=== PATIENT | female | born 1955 | race Caucasian/White ===

== ENCOUNTER 2020-06-03 19:49 | Inpatient (IN) | payer SELFPAY ==
[~2020-06-03] VITALS: Ht 160 cm; Wt 86.6 kg
[2020-06-03] MEDS ORDERED: cloNIDine HCL 0.1 MG TAB PO ONE (20:15)
[2020-06-03] MEDS ORDERED: LORazepam 2MG/ML-1ML VIAL IV ONE (21:00)
[2020-06-03] MEDS ORDERED: LORazepam 2MG/ML-1ML VIAL ONE (21:02)
[2020-06-03 21:11] LABS: Eosinophils # (auto) 0 10 ^3/uL (0-0.8); Monocytes # (auto) 0.4 10 ^3/uL (0-1.3); Nucleated Red Blood Cells % 0.1 %; White Blood Cell 8.8 10^3/uL (4.4-10.8)
[2020-06-03 21:14] LABS: Basophils # (auto) 0 10 ^3/uL (0-0.2); Basophils % (auto) 0.3 % (0.0-2.0); Eosinophils % (auto) 0.1 % (0.0-7.0); Hematocrit 42.7 % (36.0-46.0); Hemoglobin 14.8 g/dL (12.2-16.2); Lymphocytes % (auto) 10.9 % (10.0-50.0); Mean Corpuscular Hemoglobin 36.1 pg (28.0-32.0); Mean Corpuscular Hgb Conc. 34.7 g/dL (32.0-36.0); Mean Corpuscular Volume 103.9 fL (80.0-100.0); Monocytes % (auto) 4.7 % (0.0-12.0); Neutrophils # (auto) 7.4 10 ^3/uL (1.6-8.6); Platelet Count (auto) 226 10^3/uL (140-450); Red Blood Cells 4.11 10^6/uL (4.0-5.20); Red Cell Distribution Width 13.8 % (11.8-14.3)
[2020-06-03 21:26] LABS: Albumin 4.1 g/dL (3.4-5.0); Anion Gap 13 (5-15); Blood Urea Nitrogen 10 mg/dL (7-18); Calcium 9.3 mg/dL (8.5-10.1); Carbon Dioxide 21 mmol/L (21-32); Chloride 103 mmol/L (98-107); Glucose 115 mg/dL (74-106); Sodium 137 mmol/L (136-145)
[2020-06-03 21:27] LABS: INR 0.98 (0.9-1.15); Partial Thromboplastin Time 24.4 sec (23.0-31.2)
[2020-06-03 21:29] LABS: Alanine Aminotransferase 26 U/L (13-56); Aspartate Aminotransferase 28 U/L (15-37); BUN/Creatinine Ratio 8.9; GFR African American 63 mL/min; GFR Non-African American 52 mL/min
[2020-06-03 21:34] LABS: Alkaline Phosphatase 117 U/L (45-117); Bilirubin, Total 2.4 mg/dL (0.2-1.0); Total Protein 8.6 g/dL (6.4-8.2)
[2020-06-03 21:38] LABS: Potassium 4.4 mmol/L (3.5-5.1)
[2020-06-04] MEDS ORDERED: ENALAPRILAT 1.25 MG/ML-1ML VIAL IV ONE (01:00)
[2020-06-04] MEDS ORDERED: DOCUSATE SOD 100 MG CAP PO PRN (03:15)
[2020-06-04] MEDS ORDERED: HYDROcodone-ACET 5/325MG TAB PO PRN (03:15)
[2020-06-04] MEDS ORDERED: MORPHINE SULF INJ 2 MG/ML SYRINGE 1ML IV PRN (03:15)
[2020-06-04] MEDS ORDERED: ONDANSETRON HCL 4 MG/2 ML VIAL IV PRN (03:15)
[2020-06-04] MEDS ORDERED: NITROGLYCERIN 0.4 MG SL TAB SL PRN (03:15)
[2020-06-04] MEDS ORDERED: ACETAMINOPHEN 325 MG TAB PO PRN (03:15)
[2020-06-04 03:34] LABS: Basophils # (auto) 0 10 ^3/uL (0-0.2); Eosinophils # (auto) 0 10 ^3/uL (0-0.8); Lymphocytes # (auto) 1.3 10 ^3/uL (0.4-5.4); Monocytes # (auto) 0.4 10 ^3/uL (0-1.3); Neutrophils # (auto) 4.3 10 ^3/uL (1.6-8.6)
[2020-06-04 03:36] LABS: Basophils % (auto) 0.7 % (0.0-2.0); Eosinophils % (auto) 0.3 % (0.0-7.0); Hematocrit 37.4 % (36.0-46.0); Lymphocytes % (auto) 21.4 % (10.0-50.0); Mean Corpuscular Hemoglobin 36.1 pg (28.0-32.0); Mean Corpuscular Hgb Conc. 34.8 g/dL (32.0-36.0); Mean Corpuscular Volume 103.8 fL (80.0-100.0); Neutrophils % (auto) 71.6 % (37.0-80.0); Platelet Count (auto) 190 10^3/uL (140-450); Red Blood Cells 3.61 10^6/uL (4.0-5.20); Red Cell Distribution Width 13.7 % (11.8-14.3); White Blood Cell 5.9 10^3/uL (4.4-10.8)
[2020-06-04 04:04] LABS: Albumin 3.3 g/dL (3.4-5.0); Calcium 8.6 mg/dL (8.5-10.1); Potassium 3.8 mmol/L (3.5-5.1)
[2020-06-04 04:07] LABS: Bilirubin, Total 1.6 mg/dL (0.2-1.0); Total Protein 6.9 g/dL (6.4-8.2)
[2020-06-04 05:05] LABS: Urine Bacteria MANY /hpf (None Seen); Urine Blood Negative /uL (Negative); Urine Hyaline Cast FEW /lpf (0 - 2); Urine Mucus FEW (None Seen); Urine Specific Gravity 1.013 (1.001-1.035); Urine WBC 91 /hpf (0 - 5)
[2020-06-04] MEDS: SODIUM CHLOR 0.9% PF (SALINE LOCK) 10ML VIAL/SYR IV SCH ×3 (06:00→21:15)
[2020-06-04] MEDS ORDERED: hydrALAZINE HCL 20 MG/ML VL IV SCH (06:00)
[2020-06-04] MEDS ORDERED: hydrALAZINE HCL 25 MG TAB PO SCH (06:00)
[2020-06-04] MEDS ORDERED: ASCORBIC ACID 500 MG TAB PO SCH (10:00)
[2020-06-04] MEDS ORDERED: ZINC SULFATE 220mg CAP or TAB PO SCH (10:00)
[2020-06-04] MEDS: MULTIPLE VITAMIN TAB PO SCH (10:04)
[2020-06-04] MEDS: ENOXAPARIN SOD 30 MG/0.3 ML SYRINGE SC SCH (10:04)
[2020-06-04] MEDS: FAMOTIDINE 20 MG TAB PO SCH ×2 (10:04→21:14)
[2020-06-04] MEDS: amLODIPine BESYLATE 5 MG TAB PO SCH (10:04)
[2020-06-04] MEDS ORDERED: cloNIDine HCL 0.1 MG TAB ONE (11:43)
[2020-06-04] MEDS ORDERED: cloNIDine HCL 0.1 MG TAB PO ONE (11:45)
[2020-06-04] MEDS ORDERED: HCTZ 25 MG TAB PO ONE (12:15)
[2020-06-04] MEDS ORDERED: cloNIDine HCL 0.1 MG TAB PO PRN (12:15)
[2020-06-04] MEDS ORDERED: LOSARTAN POTASSIUM 25 MG TAB PO ONE (12:15)
[2020-06-04] MEDS: hydrALAZINE HCL 20 MG/ML VL IV PRN (15:49)
[2020-06-04 16:56] VITALS: BP 147/90
[2020-06-04 17:00] VITALS: BP 182/99
[2020-06-04 22:00] VITALS: BP 136/69
[2020-06-05] VITALS (7 sets, daily range): BP systolic 144–178; BP diastolic 74–105
[2020-06-05] MEDS: SODIUM CHLOR 0.9% PF (SALINE LOCK) 10ML VIAL/SYR IV SCH ×2 (06:19→14:12)
[2020-06-05 06:48] LABS: Eosinophils # (auto) 0.1 10 ^3/uL (0-0.8); Lymphocytes # (auto) 1.2 10 ^3/uL (0.4-5.4); Monocytes # (auto) 0.4 10 ^3/uL (0-1.3); White Blood Cell 5.7 10^3/uL (4.4-10.8)
[2020-06-05 06:51] LABS: Basophils # (auto) 0.1 10 ^3/uL (0-0.2); Basophils % (auto) 0.9 % (0.0-2.0); Eosinophils % (auto) 0.9 % (0.0-7.0); Hematocrit 41.4 % (36.0-46.0); Lymphocytes % (auto) 21.2 % (10.0-50.0); Mean Corpuscular Hemoglobin 35.8 pg (28.0-32.0); Mean Corpuscular Hgb Conc. 33.9 g/dL (32.0-36.0); Mean Corpuscular Volume 105.8 fL (80.0-100.0); Monocytes % (auto) 7.8 % (0.0-12.0); Neutrophils # (auto) 3.9 10 ^3/uL (1.6-8.6); Neutrophils % (auto) 69.2 % (37.0-80.0); Platelet Count (auto) 194 10^3/uL (140-450); Red Blood Cells 3.91 10^6/uL (4.0-5.20); Red Cell Distribution Width 13.8 % (11.8-14.3)
[2020-06-05 07:04] LABS: Potassium 3.6 mmol/L (3.5-5.1)
[2020-06-05 07:31] LABS: Albumin 3.5 g/dL (3.4-5.0); Bilirubin, Total 2.2 mg/dL (0.2-1.0); Calcium 9.4 mg/dL (8.5-10.1); Total Protein 7.4 g/dL (6.4-8.2)
[2020-06-05] MEDS: ENOXAPARIN SOD 30 MG/0.3 ML SYRINGE SC SCH (09:27)
[2020-06-05] MEDS: FAMOTIDINE 20 MG TAB PO SCH (09:27)
[2020-06-05] MEDS: MULTIPLE VITAMIN TAB PO SCH (09:27)
[2020-06-05] MEDS: amLODIPine BESYLATE 5 MG TAB PO SCH (09:27)
[2020-06-05] MEDS ORDERED: HCTZ 25 MG TAB PO SCH (10:00)
[2020-06-05] MEDS ORDERED: LOSARTAN POTASSIUM 25 MG TAB PO SCH (10:00)
[2020-06-05] MEDS: hydrALAZINE HCL 20 MG/ML VL IV PRN (10:39)
== END 2020-06-05 17:47 | disposition home or self-care (01) | DRG 305 ==
LOC: ER 19:49 → TELE 06-04 03:09 → TELE-EAST 06-04 15:50
PROVIDERS: ADMIT Nurse Practitioner Family; ATTEND Nurse Practitioner Family
DX: I16.1 Hypertensive emergency (principal); N17.9 Acute kidney failure, unspecified; N39.0 Urinary tract infection, site not specified; Z20.822 Contact with and (suspected) exposure to COVID-19; I10 Essential (primary) hypertension; Z82.49 Family history of ischemic heart disease and other diseases of the circulatory system; Z91.14 Patient's other noncompliance with medication regimen
CPT/HCPCS: 36415; 70450; 80053; 81001; 83036; 83880; 84439; 84443; 84484; 85025; 85610; 85730; 87426; 93306; 96372; 96374; 96375; G0378